=== PATIENT | male | born 1960 | race Caucasian/White ===

== ENCOUNTER 2016-11-06 16:13 | Emergency (ER) | payer OTHER ==
[~2016-11-06] VITALS: Ht 180.3 cm; Wt 90.0 kg
[2016-11-06 16:23] VITALS: BP 161/92; PULSE 103; RESP 18; TEMP 99; O2SAT 95
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
[2016-11-06 17:00] LABS: AUTOMATED NEUTROPHIL # 6.2 TH/MM3 (1.8-7.7); BASOPHIL # 0.1 TH/MM3 (0-0.2); BASOPHIL % 0.9 % (0.0-2.0); EOSINOPHIL # 0.2 TH/MM3 (0-0.4); EOSINOPHIL % 1.8 % (0.0-4.0); LYMPH % 45.3 % (9.0-44.0); LYMPHOCYTE # 5.9 TH/MM3 (1.0-4.8); MEAN CELL VOLUME 86.9 FL (80.0-100.0); MEAN CORPUSCULAR HEMOGLOBIN 29.7 PG (27.0-34.0); MEAN CORPUSCULAR HGB CONC 34.2 % (32.0-36.0); MONO % 4.2 % (0.0-8.0); NEUT % 47.8 % (16.0-70.0); PLATELET COUNT 377 TH/MM3 (150-450); RED BLOOD COUNT 5.29 MIL/MM3 (4.50-5.90); WHITE BLOOD COUNT 13.1 TH/MM3 (4.0-11.0)
[2016-11-06] MEDS ORDERED: GABAPENTIN 400 MG CAP PO ONE (17:00)
[2016-11-06] MEDS ORDERED: MORPHINE SULFATE 15 MG TAB PO ONE (17:00)
[2016-11-06] MEDS ORDERED: MORP1TAB24 PO (17:01)
[2016-11-06] MEDS ORDERED: OXYC-392 PO (17:01)
[2016-11-06] MEDS ORDERED: GABA400C5 PO (17:01)
[2016-11-06] MEDS ORDERED: SERT-129 PO (17:01)
[2016-11-06 17:15] LABS: ALT (GPT) 43 U/L (12-78); ANION GAP 8 MEQ/L (5-15); AST (GOT) 47 U/L (15-37); BICARBONATE 26.6 MEQ/L (21.0-32.0); BLOOD UREA NITROGEN 13 MG/DL (7-18); CHLORIDE 104 MEQ/L (98-107); GLOMERULAR FILTRATION RATE 62 ML/MIN (>89); POTASSIUM 4.1 MEQ/L (3.5-5.1); SODIUM (NA) 139 MEQ/L (136-145)
[2016-11-06 17:17] LABS: HEMO FLAGS AUTO DIFF
[2016-11-06 17:18] LABS: ALKALINE PHOSPHATASE 118 U/L (45-117); TOTAL BILIRUBIN ADULT 0.3 MG/DL (0.2-1.0)
[2016-11-06 17:33] LABS: AMPHETAMINE, URINE NEG (NEG); BARBITURATES, URINE NEG (NEG); COCAINE, URINE NEG (NEG)
[2016-11-06 17:53] VITALS: BP 133/82; PULSE 92; RESP 18; TEMP 97.9; O2SAT 95
[2016-11-06 18:24] LABS: EOSINOPHILS 4 % (0-4); NEUTROPHIL # MANUAL DIFF 7.6 TH/MM3 (1.8-7.7); POLYS (SEG NEUTROPHILS) 58 % (16-70); WBC DIFF SAMPLE 100
[2016-11-06 18:25] LABS: OVALOCYTES 1+ (NORMAL); PLATELET ESTIMATE SMEAR HIGH (NORMAL); PLATELET MORPHOLOGY NORMAL (NORMAL); SCAN/DIFF FINAL DIFF MANUAL
[2016-11-06] MEDS ORDERED: MORPHINE SULFATE 15 MG TAB PO PRN (20:15)
[2016-11-06 22:00] VITALS: BP 124/67; PULSE 67; RESP 17; O2SAT 98
[2016-11-07 02:05] VITALS: BP 114/63; PULSE 64; RESP 18; TEMP 97.6; O2SAT 95
[2016-11-07 06:25] VITALS: BP 114/68; PULSE 60; RESP 17; O2SAT 100
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
[2016-11-07] MEDS ORDERED: GABAPENTIN 400 MG CAP PO SCH (09:00)
== END 2016-11-07 09:44 | disposition home or self-care (01) ==
LOC: NEPE 16:13 → NEPJ 11-07 09:44
DX: T75.0 Effects of lightning (principal); G62.9 Polyneuropathy, unspecified; G89.29 Other chronic pain; Z72.0 Tobacco use; F32.9 Major depressive disorder, single episode, unspecified
CPT/HCPCS: 80053; 80307; 85007; 85027; 99284